=== PATIENT | female | born 1980 | race Caucasian/White ===

== ENCOUNTER 2021-07-10 13:10 | Emergency (ER) | payer OTHER, SELFPAY ==
[2021-07-10 13:49] VITALS: BP 123/85; PULSE 72; RESP 16; TEMP 36.8; O2SAT 99
[2021-07-10 13:53] VITALS: BP 123/85; PULSE 72; RESP 16; TEMP 36.6; O2SAT 98; BMI 32.5
--- NOTE | 2021-07-10 14:11 | ED.GENADULT ---
HPI - General Adult General Chief complaint: General Medical Stated complaint: rash Time Seen by Provider: 07/10/21 14:11 Source: patient Mode of arrival: ambulatory Limitations: no limitations History of Present Illness HPI narrative: 41-year-old female presents for cluster of vesicles on erythematous base in a T10 dermatomal distribution on her left back. Symptoms started last night. She has a strip of skin that feels numb and burning pain that corresponds to the dermatome where the rash is. It is tender to touch. No abdominal pain, no nausea, no vomiting, no diarrhea, no fevers. Related Data Previous Rx's Medication Instructions Recorded valacyclovir 1 gram tablet 1,000 mg PO Q8H 7 Days #21 tab 07/10/21 Allergies Allergy/AdvReac Type Severity Reaction Status Date / Time amoxicillin Allergy Intermediate tachy Verified 07/10/21 14:57 Review of Systems Constitutional: Constitutional: Denies body ache(s), Denies chills, Denies fatigue, Denies fever(s), Denies headache(s), Denies malaise and Denies weakness Eyes: Eyes: Denies diplopia ENT: Denies vertigo, Denies dizziness, Denies otalgia, Denies headache(s), Denies mouth pain, Denies post nasal drip, Denies sinus pain, Denies sinus pressure, Denies sore throat and Denies throat swelling Cardiovascular: Cardiovascular: Denies chest pain, Denies syncope, Denies leg edema, Denies lightheadedness, Denies Loss of Consciousness, Denies palpitations and Denies dyspnea Respiratory: Respiratory: Denies chest congestion, Denies cough and Denies dyspnea Gastrointestinal: Gastrointestinal: Denies abdominal pain, Denies hematochezia, Denies constipation, Denies diarrhea and Denies vomiting Musculoskeletal: Musculoskeletal: Reports no additional musculoskeletal complaints, Denies back pain, Denies myalgias and Reports numbness Integumentary/Breasts: Skin/Breast: Reports rash Neurologic: Denies confusion, Denies vertigo, Denies dizziness, Denies syncope, Denies headache(s), Reports numbness and Denies weakness Psychiatric: Psychiatric: Denies anxiety, Denies confusion and Denies depression Endocrine: Endocrine: Denies fatigue and Denies palpitations Allergic/Immunologic: Allergic/Immunologic: Denies throat swelling PMFSH Social History Social History Advance Directives: No Advance Directives Information Provided: No Patient : No Physical Exam ED Vital Signs: Vital Signs - 24 hr 07/10/21 13:49 07/10/21 13:53 Temperature 98.2 F 98 F Pulse Rate 72 72 Respiratory Rate 16 16 Blood Pressure 123/85 123/85 Pulse Oximetry 99 98 BMI result Body Mass Index 32.5 Const General: comfortable, no acute distress, well developed, alert and awake; No confusion Nutritional Appearance: well nourished Orientation/consciousness: patient oriented x3 and No confusion Limitations: no limitations HENMT Head: Yes normal to inspection, Yes normocephalic and Yes atraumatic Ears: TM's normal bilaterally and EAC's normal General nose exam: Normal external nose present Face and sinus: Yes normal facial exam and Yes sinuses nontender Mouth: Normal oral and palatal mucosa present Throat: Yes posterior oropharynx abnormal Eyes Pupils: Equal, round and reactive pupils present EOM: EOMs intact bilaterally Neck Neck: Yes full ROM, Yes no lymphadenopathy, Yes no meningeal signs, Yes trachea midline and Yes supple Chest Chest palpation & inspection: normal inspection of the chest Cardio Rate: regular rate Rhythm: regular rhythm Heart sounds: S1 normal heart sound present and S2 normal heart sound present GI Inspection: Yes normal to inspection Palpation (GI): Soft to palpation, not firm, nontender, no guarding and not rigid Skin Other: Cluster of vesicles on an erythematous base left lateral Rashes: rashes noted left lateral truncal arrangement clustered, borders, color and morphology Neuro General: patient oriented x3, no meningeal signs and No confusion Cranial nerves: Yes Equal, round and reactive pupils present Course Course Course Narrative: 41-year-old female with painful rash on left lateral back that is burning and numb and corresponds with the T10 dermatome. Patient has stable vitals, well-appearing otherwise. Was started on valacyclovir, counseled to follow-up with primary care provider. Discharge Plan Discharge Clinical Impression: Herpes zoster Patient Disposition: Home, Self-Care Instructions: Shingles (ED) Additional Instructions: Please call your primary care provider on Monday for follow-up appointment. You may be eligible for the shingles vaccine. Please fill the prescription that I have sent, he wants to take the antiviral 3 times a day for 7 days. Please return to emergency room for new or concerning symptoms Prescriptions: New valacyclovir 1 gram tablet 1,000 mg PO Q8H 7 Days Qty: 21 0RF
== END 2021-07-10 15:19 | disposition home or self-care (01) ==
PROVIDERS: Emergency Provider Emergency Medicine Emergency Medical Services; PCP Pediatrics
DX: B02.9 Zoster without complications (principal)
CPT/HCPCS: 99283; 99284